=== PATIENT | male | born 1940 | race Asian ===

== ENCOUNTER 2022-05-07 09:00 | Inpatient (IN) | payer OTHER, MEDICAID ==
[~2022-05-07] VITALS: Ht 167.6 cm; Wt 101.2 kg
[2022-05-07 09:39] LABS: Urine Bacteria NONE SEEN /hpf (None Seen); Urine Blood Negative /uL (Negative); Urine Hyaline Cast FEW /lpf (0 - 2); Urine Specific Gravity 1.014 (1.001-1.035); Urine WBC <1 /hpf (0 - 3)
[2022-05-07 09:42] LABS: Basophils # (auto) 0 10 ^3/uL (0-0.2); Eosinophils # (auto) 0.1 10 ^3/uL (0-0.8); Eosinophils % (auto) 2.3 % (0.0-7.0); Lymphocytes # (auto) 1.5 10 ^3/uL (0.4-5.4); Monocytes # (auto) 0.7 10 ^3/uL (0-1.3); Neutrophils # (auto) 3.2 10 ^3/uL (1.6-8.6); Nucleated Red Blood Cells % 0.2 %; Red Cell Distribution Width 15.7 % (11.8-14.3)
[2022-05-07 09:44] LABS: Basophils % (auto) 0.3 % (0.0-2.0); Hematocrit 33.8 % (41.0-53.0); Hemoglobin 11.3 g/dL (13.5-17.5); Lymphocytes % (auto) 26.3 % (10.0-50.0); Mean Corpuscular Hemoglobin 35.2 pg (28.0-32.0); Mean Corpuscular Hgb Conc. 33.3 g/dL (32.0-36.0); Mean Corpuscular Volume 105.8 fL (80.0-100.0); Monocytes % (auto) 12.9 % (0.0-12.0); Neutrophils % (auto) 58.2 % (37.0-80.0); White Blood Cell 5.6 10^3/uL (4.4-10.8)
[2022-05-07 10:05] LABS: Albumin 3.2 g/dL (3.4-5.0); BUN/Creatinine Ratio 25.3; Calcium 8.9 mg/dL (8.5-10.1); Potassium 3.9 mmol/L (3.5-5.1)
[2022-05-07 10:08] LABS: Bilirubin, Total 0.4 mg/dL (0.2-1.0); Total Protein 8.4 g/dL (6.4-8.2)
[2022-05-07] MEDS ORDERED: LACTATED RINGER'S 1,000 ML IV ONE (10:30)
[2022-05-07 10:59] LABS: Magnesium 2.5 mg/dL (1.6-2.6); Phosphorus 2.3 mg/dL (2.5-4.90)
[2022-05-07] MEDS ORDERED: NITROGLYCERIN 0.4 MG SL TAB SL PRN (11:15)
[2022-05-07] MEDS ORDERED: MORPHINE SULFATE INJ 2 MG/ml SYRG IV PRN (11:15)
[2022-05-07] MEDS ORDERED: DEXTROSE (50%) 50ML SYRG IV PRN (11:30)
[2022-05-07] MEDS ORDERED: hydrALAZINE HCL 20 MG/ML VL IV PRN (11:45)
[2022-05-07] MEDS: SODIUM CHLORIDE 0.9% 1,000 ML IV SCH ×2 (12:21→22:29)
[2022-05-07] MEDS: ACCU-CHEK COMFORT CURVE STRIP VI SCH ×4 (12:24→22:10)
[2022-05-07] MEDS: InsuLIN REG 1unit/0.01ml Soln (100units/ml) SC SCH ×3 (12:24→22:25)
[2022-05-07 12:37] LABS: Alcohol, Urine < 3.0 mg/dL (0-10); Amphetamine Screen, Urine NEGATIVE (NEGATIVE); Barbiturate Scree,Urine NEGATIVE (NEGATIVE); Benzodiazephine Screen, Urine NEGATIVE (NEGATIVE); Cannabinoid Screen, Urine NEGATIVE (NEGATIVE); Cocaine Screen, Urine NEGATIVE (NEGATIVE); Opiate Scree,Urine NEGATIVE (NEGATIVE); Phencyclidine Screen, Urine NEGATIVE (NEGATIVE)
[2022-05-07 12:43] LABS: Cholesterol 117 mg/dL (< 200); Triglycerides 102 mg/dL (< 150)
[2022-05-07 12:46] LABS: HDL Cholesterol 52 mg/dL (40-59); LDL Cholesterol 53 mg/dL (< 100)
[2022-05-08 06:19] LABS: Basophils # (auto) 0 10 ^3/uL (0-0.2); Eosinophils # (auto) 0.2 10 ^3/uL (0-0.8); Lymphocytes # (auto) 1.2 10 ^3/uL (0.4-5.4); Monocytes # (auto) 0.7 10 ^3/uL (0-1.3)
[2022-05-08 06:22] LABS: Basophils % (auto) 0.3 % (0.0-2.0); Eosinophils % (auto) 3.2 % (0.0-7.0); Hemoglobin 10.1 g/dL (13.5-17.5); Lymphocytes % (auto) 23.5 % (10.0-50.0); Mean Corpuscular Hemoglobin 36.7 pg (28.0-32.0); Mean Corpuscular Hgb Conc. 34.6 g/dL (32.0-36.0); Mean Corpuscular Volume 106.1 fL (80.0-100.0); Monocytes % (auto) 12.9 % (0.0-12.0); Neutrophils # (auto) 3.1 10 ^3/uL (1.6-8.6); Neutrophils % (auto) 60.1 % (37.0-80.0); Nucleated Red Blood Cells % 0.1 %; Red Blood Cells 2.74 10^6/uL (4.5-5.90); Red Cell Distribution Width 15.8 % (11.8-14.3); White Blood Cell 5.2 10^3/uL (4.4-10.8)
[2022-05-08 06:35] LABS: Albumin 2.8 g/dL (3.4-5.0); BUN/Creatinine Ratio 23.2; Calcium 8.8 mg/dL (8.5-10.1); Potassium 4.1 mmol/L (3.5-5.1)
[2022-05-08] MEDS: InsuLIN REG 1unit/0.01ml Soln (100units/ml) SC SCH ×4 (06:36→21:40)
[2022-05-08 06:38] LABS: Bilirubin, Total 0.4 mg/dL (0.2-1.0); Total Protein 7.1 g/dL (6.4-8.2)
[2022-05-08] MEDS: SODIUM CHLORIDE 0.9% 1,000 ML IV SCH ×2 (07:30→17:02)
[2022-05-08 08:30] LABS: Folate (Folic Acid) 14.85 ng/mL (5.38-24)
[2022-05-08] MEDS ORDERED: GABA-339 PO (09:21)
[2022-05-08] MEDS ORDERED: CYA100I IM (09:49)
[2022-05-08] MEDS ORDERED: FURO40TA4 PO (09:49)
[2022-05-08] MEDS ORDERED: PIO30T PO (09:49)
[2022-05-08] MEDS ORDERED: PANT1INJ3 IV (09:49)
[2022-05-08] MEDS ORDERED: FERR-20 PO (09:49)
[2022-05-08] MEDS ORDERED: ALLO100T PO (09:49)
[2022-05-08] MEDS ORDERED: ASPI-543 PO (09:49)
[2022-05-08] MEDS ORDERED: TAMS0.4C36 PO (09:49)
[2022-05-08] MEDS ORDERED: CHOL20007 OR (09:49)
[2022-05-08] MEDS: PANTOPRAZOLE 40 MG/10 ML VIAL INJ IV SCH (10:33)
[2022-05-08] MEDS: ENOXAPARIN SOD 30 MG/0.3 ML SYRINGE SC SCH (10:33)
[2022-05-08 10:40] LABS: % Iron Saturation 19.5 % (20-55)
[2022-05-08 12:41] VITALS: BP 135/59
[2022-05-08] MEDS: ACCU-CHEK COMFORT CURVE STRIP VI SCH ×3 (13:02→21:39)
[2022-05-08 13:49] VITALS: BP 135/59
[2022-05-08 17:07] VITALS: BP 122/54
[2022-05-08 20:00] VITALS: BP 132/57
[2022-05-08 22:00] VITALS: BP 132/57
[2022-05-08] MEDS ORDERED: PRAMIPEXOLE DIHYDROCHLORIDE MO 0.25 MG TAB PO SCH (22:00)
[2022-05-09 05:00] VITALS: BP 135/48
[2022-05-09] MEDS: ACCU-CHEK COMFORT CURVE STRIP VI SCH ×2 (06:09→11:26)
[2022-05-09] MEDS: InsuLIN REG 1unit/0.01ml Soln (100units/ml) SC SCH ×2 (06:11→11:41)
[2022-05-09 06:30] LABS: Magnesium 2.2 mg/dL (1.6-2.6); Phosphorus 2.3 mg/dL (2.5-4.90)
[2022-05-09 07:47] LABS: INR 1.05 (0.9-1.15); Partial Thromboplastin Time 29.2 sec (24.6-33.4)
[2022-05-09 08:00] VITALS: BP_SYST 104; BP_SYST 150; BP_DIAS 75; BP_DIAS 78
[2022-05-09] MEDS: ENOXAPARIN SOD 30 MG/0.3 ML SYRINGE SC SCH (08:11)
[2022-05-09] MEDS ORDERED: ENOXAPARIN SOD 40 MG/0.4 ML SYRINGE SC SCH (10:00)
[2022-05-09] MEDS ORDERED: ERGOCALCIFEROL 50,000 UNIT(1.25MG) CAP PO SCH (10:00)
[2022-05-09] MEDS ORDERED: POTASSIUM PHOSPHATE 22 MEQ in SODIUM CHL 0.9% 100 ML IV ONE (10:00)
[2022-05-09] MEDS ORDERED: CYANOCOBALAMIN 500 MCG TAB PO SCH (10:00)
[2022-05-09 10:36] LABS: BUN/Creatinine Ratio 17.4; Calcium 8.7 mg/dL (8.5-10.1)
[2022-05-09] MEDS: PANTOPRAZOLE 40 MG/10 ML VIAL INJ IV SCH (11:25)
[2022-05-09 12:00] VITALS: BP 153/66
[2022-05-09 15:02] VITALS: BP 153/66
== END 2022-05-09 16:15 | disposition home or self-care (01) | DRG 73 ==
LOC: ER 09:00 → TELE 11:19 → TELE-CENTR 05-08 11:22
PROVIDERS: ADMIT Registered Nurse; ATTEND Internal Medicine
DX: G90.8 Other disorders of autonomic nervous system (principal); E43 Unspecified severe protein-calorie malnutrition; N17.0 Acute kidney failure with tubular necrosis; C34.90 Malignant neoplasm of unspecified part of unspecified bronchus or lung; D50.9 Iron deficiency anemia, unspecified; D63.8 Anemia in other chronic diseases classified elsewhere; E53.8 Deficiency of other specified B group vitamins; E66.01 Morbid (severe) obesity due to excess calories; G25.81 Restless legs syndrome; G47.00 Insomnia, unspecified; E11.22 Type 2 diabetes mellitus with diabetic chronic kidney disease; I12.9 Hypertensive chronic kidney disease with stage 1 through stage 4 chronic kidney disease, or unspecified chronic kidney disease; N18.31 Chronic kidney disease, stage 3a; R29.6 Repeated falls; R55 Syncope and collapse; Z68.36 Body mass index [BMI] 36.0-36.9, adult; Z71.3 Dietary counseling and surveillance
CPT/HCPCS: 36415; 70450; 70551; 71045; 71250; 74176; 80048; 80053; 80061; 80307; 81001; 82105; 82306; 82378; 82570; 82607; 82728; 82746; 82962; 83036; 83540; 83550; 83735; 83880; 83935; 84100; 84154; 84156; 84300; 84443; 84484; 85025; 85379; 85610; 85730; 86301; 87081; 87426; 93005; 93306; 93886; 93970; 95819; 96360; 96372; 97163; C9113; G0378; J1815

== ENCOUNTER → 2022-08-25 | Outpatient (CLI) | payer OTHER, MEDICAID ==
[~2022-08-25] MED LIST: ALLO100T PO; ASPI-543 PO; CHOL20007 OR; CYA100I IM; FERR325T24 PO; FURO40TA4 PO; GABA-339 PO; PANT1INJ3 IV; PIO30T PO; TAMS0.4C36 PO
[2022-08-25 06:54] LABS: Basophils # (auto) 0 10 ^3/uL (0-0.2); Basophils % (auto) 0.4 % (0.0-2.0); Eosinophils # (auto) 0.4 10 ^3/uL (0-0.8); Hematocrit 34.7 % (41.0-53.0); Hemoglobin 11.5 g/dL (13.5-17.5); Lymphocytes # (auto) 1.8 10 ^3/uL (0.4-5.4); Lymphocytes % (auto) 27.7 % (10.0-50.0); Mean Corpuscular Hemoglobin 33.5 pg (28.0-32.0); Mean Corpuscular Hgb Conc. 33.2 g/dL (32.0-36.0); Mean Corpuscular Volume 100.9 fL (80.0-100.0); Monocytes # (auto) 0.7 10 ^3/uL (0-1.3); Monocytes % (auto) 10.2 % (0.0-12.0); Neutrophils # (auto) 3.5 10 ^3/uL (1.6-8.6); Neutrophils % (auto) 54.7 % (37.0-80.0); Nucleated Red Blood Cells % 0.1 %; Red Blood Cells 3.44 10^6/uL (4.5-5.90); Red Cell Distribution Width 15.7 % (11.8-14.3); White Blood Cell 6.4 10^3/uL (4.4-10.8)
[2022-08-25 07:17] LABS: INR 1.08 (0.9-1.15); Partial Thromboplastin Time 29.6 SEC (24.5-34.5)
== END | disposition home or self-care (01) ==
LOC: LAB 06:42
PROVIDERS: ATTEND Internal Medicine
DX: Z01.810 Encounter for preprocedural cardiovascular examination (principal); R91.8 Other nonspecific abnormal finding of lung field; R06.02 Shortness of breath
CPT/HCPCS: 36415; 85025; 85610; 85730

== ENCOUNTER → 2022-11-09 | Outpatient (CLI) | payer OTHER, MEDICAID ==
[2022-11-09 07:12] LABS: Urine Bacteria NONE SEEN /hpf (None Seen); Urine Blood Negative /uL (Negative); Urine Clarity Clear (Clear); Urine Color Yellow (Yellow); Urine Protein, UAD TRACE (Negative); Urine Specific Gravity 1.014 (1.001-1.035); Urine Urobilinogen Normal (Negative); Urine WBC <1 /hpf (0 - 3); Urine pH 5.5 (5.0-8.0)
[2022-11-09 07:53] LABS: Anion Gap 4 (5-15); Carbon Dioxide 31 mmol/L (20-30); Chloride 104 mmol/L (98-107); Potassium 4.4 mmol/L (3.5-5.1); Sodium 139 mmol/L (136-145)
[2022-11-09 07:54] LABS: Calcium 9.3 mg/dL (8.5-10.1)
[2022-11-09 07:59] LABS: BUN/Creatinine Ratio 15.1 (10.0-20.0); Blood Urea Nitrogen 25 mg/dL (9-23); Glucose 170 mg/dL (74-106)
== END | disposition home or self-care (01) ==
LOC: LAB 06:38
PROVIDERS: ATTEND Internal Medicine
DX: E11.22 Type 2 diabetes mellitus with diabetic chronic kidney disease (principal); N18.9 Chronic kidney disease, unspecified
CPT/HCPCS: 36415; 80048; 81001; 82043; 83036

== ENCOUNTER → 2023-06-19 | Outpatient (CLI) | payer OTHER, MEDICAID ==
[2023-06-19 06:42] LABS: Urine Bacteria None Seen /hpf (None Seen)
[2023-06-19 07:35] LABS: Urine Blood Negative /uL (Negative); Urine Clarity Clear (Clear); Urine Color Colorless (Yellow); Urine Protein, UAD TRACE (Negative); Urine Specific Gravity 1.009 (1.001-1.035); Urine Urobilinogen Normal (Negative); Urine WBC <1 /hpf (0 - 3); Urine pH 6.5 (5.0-9.0)
[2023-06-19 07:43] LABS: Alanine Aminotransferase 15 U/L (7-40); Alkaline Phosphatase 111 U/L (46-116); Anion Gap 7 (5-15); Calcium 9.7 mg/dL (8.5-10.1); Carbon Dioxide 30 mmol/L (20-30); Chloride 101 mmol/L (98-107); Potassium 3.9 mmol/L (3.5-5.1); Sodium 138 mmol/L (136-145)
[2023-06-19 07:44] LABS: BUN/Creatinine Ratio 17.5 (10.0-20.0); Blood Urea Nitrogen 32 mg/dL (9-23); Glucose 104 mg/dL (74-106); Triglycerides 81 mg/dL (< 150)
[2023-06-19 07:45] LABS: Albumin 4.1 g/dL (3.2-4.8); LDL Cholesterol 58 mg/dL (< 100)
[2023-06-19 07:46] LABS: Aspartate Aminotransferase 33 U/L (13-40); Bilirubin, Total 0.5 mg/dL (0.2-1.0); Cholesterol 140 mg/dL (< 200); HDL Cholesterol 61 mg/dL (40-59); Total Protein 8.1 g/dL (5.7-8.2)
[2023-06-19 08:11] LABS: Basophils # (auto) 0 10 ^3/uL (0-0.2); Basophils % (auto) 0.3 % (0.0-2.0); Eosinophils # (auto) 0.2 10 ^3/uL (0-0.8); Hematocrit 32.7 % (41.0-53.0); Hemoglobin 10.9 g/dL (13.5-17.5); Neutrophils # (auto) 2.1 10 ^3/uL (1.6-8.6); Nucleated Red Blood Cells % 0.3 %; Red Blood Cells 3.06 10^6/uL (4.5-5.90); White Blood Cell 5.1 10^3/uL (4.4-10.8)
[2023-06-19 08:13] LABS: Eosinophils % (auto) 3.7 % (0.0-7.0); Lymphocytes % (auto) 39.8 % (10.0-50.0); Mean Corpuscular Hemoglobin 35.7 pg (28.0-32.0); Mean Corpuscular Hgb Conc. 33.5 g/dL (32.0-36.0); Mean Corpuscular Volume 106.6 fL (80.0-100.0); Monocytes # (auto) 0.7 10 ^3/uL (0-1.3); Monocytes % (auto) 14.2 % (0.0-12.0); Red Cell Distribution Width 16.6 % (11.8-14.3)
== END | disposition home or self-care (01) ==
LOC: LAB 06:24
PROVIDERS: ATTEND Internal Medicine
DX: I12.9 Hypertensive chronic kidney disease with stage 1 through stage 4 chronic kidney disease, or unspecified chronic kidney disease (principal); N18.32 Chronic kidney disease, stage 3b; E11.65 Type 2 diabetes mellitus with hyperglycemia; E11.22 Type 2 diabetes mellitus with diabetic chronic kidney disease
CPT/HCPCS: 36415; 80053; 80061; 81001; 82043; 83036; 85025

== ENCOUNTER → 2023-08-21 | Outpatient (CLI) | payer OTHER, MEDICAID | END | disposition home or self-care (01) | LOC: XYW 09:17 | PROVIDERS: ATTEND Internal Medicine | DX: I08.3 Combined rheumatic disorders of mitral, aortic and tricuspid valves (principal); R94.31 Abnormal electrocardiogram [ECG] [EKG] | CPT/HCPCS: 93306 ==

== ENCOUNTER → 2023-11-15 | Outpatient (CLI) | payer OTHER, MEDICAID ==
[~2023-11-15] MED LIST changes: +ASCO500T11 PO; +ATOR10TA PO; +GLIM4TAB42 PO; +LOSA-534 PO; +METO25TA93 PO; +MIDO5TAB22 PO; +PIOG45TA11 PO; +SITA50TA PO; -TAMS0.4C36 PO; +TAMS0.4C39 PO
[2023-11-15 09:53] LABS: Urine WBC None Seen /hpf (0 - 3)
[2023-11-15 10:24] LABS: Urine Bacteria FEW /hpf (None Seen); Urine Blood Negative /uL (Negative); Urine Clarity Clear (Clear); Urine Color Light-Yellow (Yellow); Urine Hyaline Cast FEW /lpf (0 - 2); Urine Protein, UAD Negative (Negative); Urine Specific Gravity 1.009 (1.001-1.035); Urine Urobilinogen Normal (Negative)
[2023-11-15 10:43] LABS: Basophils # (auto) 0 10 ^3/uL (0-0.2); Eosinophils # (auto) 0 10 ^3/uL (0-0.8); Lymphocytes # (auto) 1.2 10 ^3/uL (0.4-5.4); Monocytes # (auto) 0.4 10 ^3/uL (0-1.3)
[2023-11-15 10:46] LABS: Basophils % (auto) 0.4 % (0.0-2.0); Hematocrit 31.6 % (41.0-53.0); Lymphocytes % (auto) 29.7 % (10.0-50.0); Mean Corpuscular Hemoglobin 38.2 pg (28.0-32.0); Mean Corpuscular Hgb Conc. 34.9 g/dL (32.0-36.0); Mean Corpuscular Volume 109.6 fL (80.0-100.0); Monocytes % (auto) 9.6 % (0.0-12.0); Neutrophils # (auto) 2.5 10 ^3/uL (1.6-8.6); Neutrophils % (auto) 59.3 % (37.0-80.0); Nucleated Red Blood Cells % 0.2 %; Platelet Count (auto) 109 10^3/uL (140-450); Red Blood Cells 2.88 10^6/uL (4.5-5.90); Red Cell Distribution Width 16.9 % (11.8-14.3); White Blood Cell 4.1 10^3/uL (4.4-10.8)
[2023-11-15 10:56] LABS: INR 1.13 (0.9-1.15); Partial Thromboplastin Time 32.2 SEC (24.5-34.5); Prothrombin Time 11.9 sec (9.3-11.8)
[2023-11-15 11:28] LABS: Alanine Aminotransferase 13 U/L (7-40); Alkaline Phosphatase 125 U/L (46-116); Aspartate Aminotransferase 26 U/L (13-40); Calcium 9.5 mg/dL (8.7-10.4); Chloride 102 mmol/L (98-107)
[2023-11-15 11:29] LABS: Anion Gap 4 (5-15); BUN/Creatinine Ratio 19.2 (10.0-20.0); Bilirubin, Total 0.6 mg/dL (0.2-1.0); Blood Urea Nitrogen 32 mg/dL (9-23); Carbon Dioxide 30 mmol/L (20-30); Glucose 259 mg/dL (74-106); Potassium 4.1 mmol/L (3.5-5.1); Sodium 136 mmol/L (136-145); Total Protein 7.8 g/dL (5.7-8.2)
== END | disposition home or self-care (01) ==
LOC: LAB 09:42
PROVIDERS: ATTEND Urology
DX: Z01.812 Encounter for preprocedural laboratory examination (principal); E11.22 Type 2 diabetes mellitus with diabetic chronic kidney disease; Z79.899 Other long term (current) drug therapy
CPT/HCPCS: 36415; 80053; 81001; 85025; 85610; 85730; 87086

== ENCOUNTER → 2023-11-26 | Day surgery (SDC) | payer OTHER, MEDICAID ==
[2023-11-22 11:12] LABS: Urine Bacteria None Seen /hpf (None Seen); Urine WBC None Seen /hpf (0 - 3)
[2023-11-22 11:52] LABS: INR 1.07 (0.9-1.15); Partial Thromboplastin Time 30.2 SEC (24.5-34.5); Prothrombin Time 11.3 sec (9.3-11.8)
[2023-11-22 11:59] LABS: Hematocrit 35.7 % (41.0-53.0); Mean Corpuscular Hemoglobin 35.5 pg (28.0-32.0); Mean Corpuscular Hgb Conc. 33.8 g/dL (32.0-36.0); Mean Corpuscular Volume 105.1 fL (80.0-100.0); Platelet Count (auto) 120 10^3/uL (140-450); Red Blood Cells 3.39 10^6/uL (4.5-5.90); Red Cell Distribution Width 17.1 % (11.8-14.3); White Blood Cell 4.7 10^3/uL (4.4-10.8)
[2023-11-22 12:00] LABS: Basophils % (manual) 0 (0.0-2.0); Blast Cells 0; Eosinophils % (manual) 0 (0-7); Metamyelocytes % 0; Myelocytes % 0; Promyelocytes % 0; Reactive Lymphocytes 0
[2023-11-22 12:06] LABS: Urine Blood Negative /uL (Negative); Urine Clarity Clear (Clear); Urine Color Colorless (Yellow); Urine Protein, UAD Negative (Negative); Urine Specific Gravity 1.005 (1.001-1.035); Urine Urobilinogen Normal (Negative); Urine pH 6.5 (5.0-9.0)
[2023-11-22 12:55] LABS: Alanine Aminotransferase 15 U/L (7-40); Albumin 4.2 g/dL (3.2-4.8); Alkaline Phosphatase 127 U/L (46-116); Anion Gap 4 (5-15); Aspartate Aminotransferase 27 U/L (13-40); BUN/Creatinine Ratio 16.4 (10.0-20.0); Bilirubin, Total 0.8 mg/dL (0.2-1.0); Blood Urea Nitrogen 27 mg/dL (9-23); Calcium 9.9 mg/dL (8.7-10.4); Carbon Dioxide 34 mmol/L (20-31); Chloride 102 mmol/L (98-107); Glucose 148 mg/dL (74-106); Potassium 4.4 mmol/L (3.5-5.1); Sodium 140 mmol/L (136-145); Total Protein 7.9 g/dL (5.7-8.2)
[2023-11-22 13:57] LABS: Band Neutrophils % (manual) 12; Lymphocytes % (manual) 27 (10.0-50.0); Monocytes % (manual) 11 (0-12)
[2023-11-22 13:58] LABS: Platelet Estimate Decreased; Stomatocytes Few
[~2023-11-26] VITALS: Ht 167.6 cm; Wt 90.7 kg
[~2023-11-26] MED LIST changes: +DexAMETHasone SOD PHOS 10MG/1ML VIAL INJ ONE; +MIDAZOLAM HCL 2MG/2ML 2ml VIAL (1mg/ml) ONE; +MORPHINE SULFATE 4 MG/ML SYR/VIAL IV PRN; +ONDANSETRON HCL 4 MG/2 ML VIAL ONE; -PIO30T PO; +fentaNYL CITRATE 100 MCG/2 ML VL ONE; +levoFLOXacin 500MG 100 ML IV ONE
[2023-11-26 10:42] VITALS: RESP 12; TEMP 97.8; O2SAT 100
[2023-11-26 11:40] VITALS: BP 142/67; PULSE 54; RESP 11; O2SAT 96
== END | disposition home or self-care (01) ==
LOC: SUR 08:15
PROVIDERS: ATTEND Urology
DX: N40.1 Benign prostatic hyperplasia with lower urinary tract symptoms (principal); E11.9 Type 2 diabetes mellitus without complications; I48.91 Unspecified atrial fibrillation; I10 Essential (primary) hypertension; E78.5 Hyperlipidemia, unspecified; Z79.82 Long term (current) use of aspirin; Z79.899 Other long term (current) drug therapy; Z98.890 Other specified postprocedural states
CPT/HCPCS: 36415; 80053; 81001; 82962; 85007; 85027; 85610; 85730; 87086; C1769; C9740; J1100; J1956; J2250; J2405; J3010; J7030; L8699

== ENCOUNTER → 2023-12-13 | Outpatient (CLI) | payer OTHER, MEDICAID ==
[~2023-12-13] MED LIST changes: -DexAMETHasone SOD PHOS 10MG/1ML VIAL INJ ONE; -MIDAZOLAM HCL 2MG/2ML 2ml VIAL (1mg/ml) ONE; -MORPHINE SULFATE 4 MG/ML SYR/VIAL IV PRN; -ONDANSETRON HCL 4 MG/2 ML VIAL ONE; -fentaNYL CITRATE 100 MCG/2 ML VL ONE; -levoFLOXacin 500MG 100 ML IV ONE
[2023-12-13 10:44] LABS: Basophils # (auto) 0 10 ^3/uL (0-0.2); Eosinophils # (auto) 0.2 10 ^3/uL (0-0.8); Hemoglobin 10.6 g/dL (13.5-17.5); Lymphocytes # (auto) 1.6 10 ^3/uL (0.4-5.4); Monocytes # (auto) 0.4 10 ^3/uL (0-1.3); Neutrophils # (auto) 2.8 10 ^3/uL (1.6-8.6)
[2023-12-13 10:46] LABS: Basophils % (auto) 0.2 % (0.0-2.0); Eosinophils % (auto) 3.1 % (0.0-7.0); Hematocrit 31.6 % (41.0-53.0); Lymphocytes % (auto) 32.6 % (10.0-50.0); Mean Corpuscular Hemoglobin 35.2 pg (28.0-32.0); Mean Corpuscular Hgb Conc. 33.6 g/dL (32.0-36.0); Mean Corpuscular Volume 104.9 fL (80.0-100.0); Monocytes % (auto) 8.1 % (0.0-12.0); Platelet Count (auto) 130 10^3/uL (140-450); Red Blood Cells 3.01 10^6/uL (4.5-5.90); Red Cell Distribution Width 16.7 % (11.8-14.3); White Blood Cell 4.9 10^3/uL (4.4-10.8)
[2023-12-13 11:45] LABS: Alanine Aminotransferase 17 U/L (7-40); Alkaline Phosphatase 109 U/L (46-116); Anion Gap 5 (5-15); Aspartate Aminotransferase 29 U/L (13-40); BUN/Creatinine Ratio 19.4 (10.0-20.0); Blood Urea Nitrogen 30 mg/dL (9-23); Calcium 9.5 mg/dL (8.7-10.4); Carbon Dioxide 28 mmol/L (20-31); Chloride 106 mmol/L (98-107); Glucose 181 mg/dL (74-106); LDL Cholesterol 58 mg/dL (< 100); Potassium 4.3 mmol/L (3.5-5.1); Sodium 139 mmol/L (136-145); Triglycerides 161 mg/dL (< 150)
[2023-12-13 11:46] LABS: Bilirubin, Total 0.7 mg/dL (0.2-1.0); Cholesterol 142 mg/dL (< 200); HDL Cholesterol 56 mg/dL (40-59); Total Protein 7.7 g/dL (5.7-8.2)
== END | disposition home or self-care (01) ==
LOC: LAB 10:24
PROVIDERS: ATTEND Internal Medicine
DX: E11.65 Type 2 diabetes mellitus with hyperglycemia (principal); E78.5 Hyperlipidemia, unspecified; I10 Essential (primary) hypertension
CPT/HCPCS: 36415; 80053; 80061; 83036; 85025

== ENCOUNTER → 2024-04-16 | Outpatient (CLI) | payer OTHER, MEDICAID ==
[2024-04-16 06:54] LABS: Urine Bacteria None Seen /hpf (None Seen)
[2024-04-16 07:03] LABS: Urine Blood Negative /uL (Negative); Urine Clarity Clear (Clear); Urine Color Colorless (Yellow); Urine Protein, UAD Negative (Negative); Urine Specific Gravity 1.006 (1.001-1.035); Urine Squamous Epithelial Cell None Seen /hpf (<5); Urine Urobilinogen Normal (Negative); Urine WBC < 1 /HPF (0-3); Urine pH 5.5 (5.0-9.0)
[2024-04-16 07:09] LABS: Basophils # (auto) 0 10 ^3/uL (0-0.2); Eosinophils # (auto) 0.4 10 ^3/uL (0-0.8); Hemoglobin 9.9 g/dL (13.5-17.5); Lymphocytes # (auto) 1.4 10 ^3/uL (0.4-5.4); Mean Corpuscular Hemoglobin 34.9 pg (28.0-32.0); Neutrophils # (auto) 3.5 10 ^3/uL (1.6-8.6); Nucleated Red Blood Cells % 0.1 %; Red Blood Cells 2.83 10^6/uL (4.5-5.90); White Blood Cell 6.1 10^3/uL (4.4-10.8)
[2024-04-16 07:11] LABS: Basophils % (auto) 0.3 % (0.0-2.0); Eosinophils % (auto) 6.8 % (0.0-7.0); Hematocrit 29.6 % (41.0-53.0); Lymphocytes % (auto) 23.7 % (10.0-50.0); Mean Corpuscular Hgb Conc. 33.3 g/dL (32.0-36.0); Mean Corpuscular Volume 104.8 fL (80.0-100.0); Monocytes # (auto) 0.7 10 ^3/uL (0-1.3); Monocytes % (auto) 11.5 % (0.0-12.0); Neutrophils % (auto) 57.7 % (37.0-80.0); Platelet Count (auto) 170 10^3/uL (140-450); Red Cell Distribution Width 15.9 % (11.8-14.3)
[2024-04-16 07:39] LABS: Albumin 4.2 g/dL (3.2-4.8); Anion Gap 7 (5-15); Aspartate Aminotransferase 15 U/L (13-40); BUN/Creatinine Ratio 21.6 (10.0-20.0); Bilirubin, Total 0.4 mg/dL (0.2-1.0); Calcium 9.8 mg/dL (8.7-10.4); Carbon Dioxide 30 mmol/L (20-31); Cholesterol 123 mg/dL (< 200); HDL Cholesterol 58 mg/dL (40-59); LDL Cholesterol 50 mg/dL (< 100); Potassium 4.3 mmol/L (3.5-5.1); Total Protein 7.3 g/dL (5.7-8.2); Triglycerides 76 mg/dL (< 150)
[2024-04-16 07:40] LABS: Free T4 (Free Thyroxine) 1.17 ng/dL (0.89-1.76)
[2024-04-16 07:41] LABS: Alanine Aminotransferase < 9 U/L (7-40); Alkaline Phosphatase 117 U/L (46-116); Blood Urea Nitrogen 45 mg/dL (9-23); Chloride 95 mmol/L (98-107); Glucose 117 mg/dL (74-106); Sodium 132 mmol/L (136-145)
== END | disposition home or self-care (01) ==
LOC: LAB 06:39
PROVIDERS: ATTEND Internal Medicine
DX: I12.9 Hypertensive chronic kidney disease with stage 1 through stage 4 chronic kidney disease, or unspecified chronic kidney disease (principal); E11.22 Type 2 diabetes mellitus with diabetic chronic kidney disease; N18.9 Chronic kidney disease, unspecified; E78.5 Hyperlipidemia, unspecified; Z79.899 Other long term (current) drug therapy
CPT/HCPCS: 36415; 80053; 80061; 81001; 82043; 82306; 82607; 83036; 84439; 84443; 84480; 85025

== ENCOUNTER 2024-10-01 07:53 | Outpatient (CLI) | payer OTHER, MEDICAID ==
[2024-10-01 08:22] LABS: Urine Protein, UAD Negative (Negative)
[2024-10-01 08:37] LABS: Albumin 3.9 g/dL (3.2-4.8); Alkaline Phosphatase 85 U/L (46-116); Anion Gap 6 (5-15); BUN/Creatinine Ratio 22.1 (10.0-20.0); Bilirubin, Total 0.7 mg/dL (0.2-1.0); Calcium 9.1 mg/dL (8.7-10.4); Carbon Dioxide 29 mmol/L (20-31); Cholesterol 153 mg/dL (< 200); Potassium 4.7 mmol/L (3.5-5.1); Total Protein 6.6 g/dL (5.7-8.2); Triglycerides 82 mg/dL (< 150)
[2024-10-01 08:39] LABS: Alanine Aminotransferase < 9 U/L (7-40); Blood Urea Nitrogen 40 mg/dL (9-23); Chloride 96 mmol/L (98-107); Glucose 252 mg/dL (74-106); HDL Cholesterol 69 mg/dL (40-59); Sodium 131 mmol/L (136-145)
== END 2024-10-01 17:00 | disposition home or self-care (01) ==
LOC: LAB 07:53
PROVIDERS: ATTEND Internal Medicine
DX: I12.9 Hypertensive chronic kidney disease with stage 1 through stage 4 chronic kidney disease, or unspecified chronic kidney disease (principal); N18.9 Chronic kidney disease, unspecified; E11.22 Type 2 diabetes mellitus with diabetic chronic kidney disease; E78.5 Hyperlipidemia, unspecified
CPT/HCPCS: 36415; 80053; 80061; 81001; 82043; 82607; 83036

== ENCOUNTER 2024-10-15 13:42 | Outpatient (CLI) | payer OTHER, MEDICAID | END 2024-10-15 17:00 | disposition home or self-care (01) | LOC: LAB 13:42 | PROVIDERS: ATTEND Internal Medicine | DX: M25.462 Effusion, left knee (principal) | CPT/HCPCS: 36415; 87075; 87076; 87205; 89051 ==

== ENCOUNTER 2024-11-27 06:38 | Outpatient (CLI) | payer OTHER, MEDICAID ==
[2024-11-27 07:58] LABS: Urine Protein, UAD Negative (Negative)
[2024-11-27 08:10] LABS: Hematocrit 28.7 % (41.0-53.0); Hemoglobin 10.0 g/dL (13.5-17.5)
[2024-11-27 08:12] LABS: Mean Corpuscular Hemoglobin 36.3 pg (28.0-32.0); Mean Corpuscular Volume 103.4 fL (80.0-100.0); Nucleated Red Blood Cells % 0.1 %
[2024-11-27 08:14] LABS: Anion Gap 8 (5-15); Carbon Dioxide 28 mmol/L (20-31); Potassium 4.8 mmol/L (3.5-5.1)
[2024-11-27 08:15] LABS: Calcium 9.0 mg/dL (8.7-10.4)
[2024-11-27 08:17] LABS: Chloride 98 mmol/L (98-107); Sodium 134 mmol/L (136-145)
[2024-11-27 08:20] LABS: BUN/Creatinine Ratio 17.5 (10.0-20.0)
[2024-11-27 08:25] LABS: Blood Urea Nitrogen 29 mg/dL (9-23); Glucose 137 mg/dL (74-106)
== END 2024-11-27 17:00 | disposition home or self-care (01) ==
LOC: LAB 06:38
PROVIDERS: ATTEND Internal Medicine
DX: I12.9 Hypertensive chronic kidney disease with stage 1 through stage 4 chronic kidney disease, or unspecified chronic kidney disease (principal); E11.22 Type 2 diabetes mellitus with diabetic chronic kidney disease; N18.32 Chronic kidney disease, stage 3b; R79.89 Other specified abnormal findings of blood chemistry
CPT/HCPCS: 36415; 80048; 81001; 82043; 82607; 85025

== ENCOUNTER 2025-01-20 07:57 | Day surgery (SDC) | payer OTHER, MEDICAID ==
[2025-01-16 11:50] LABS: Hemoglobin 11.8 g/dL (13.5-17.5)
[2025-01-16 11:52] LABS: Hematocrit 35.1 % (41.0-53.0); Mean Corpuscular Hemoglobin 34.1 pg (28.0-32.0); Mean Corpuscular Volume 101.1 fL (80.0-100.0); Nucleated Red Blood Cells % 0.3 %
[2025-01-16 11:57] LABS: Urine Protein, UAD Negative (Negative)
[2025-01-16 12:01] LABS: INR 0.96 (0.9-1.15); Partial Thromboplastin Time 27.3 SEC (24.5-34.5); Prothrombin Time 10.2 sec (9.3-11.8)
[2025-01-16 12:11] LABS: Alanine Aminotransferase 10 U/L (7-40); Anion Gap 8 (5-15); BUN/Creatinine Ratio 21.5 (10.0-20.0); Calcium 9.1 mg/dL (8.7-10.4); Carbon Dioxide 29 mmol/L (20-31); Chloride 99 mmol/L (98-107); Potassium 4.9 mmol/L (3.5-5.1); Sodium 136 mmol/L (136-145); Total Protein 6.8 g/dL (5.7-8.2)
[2025-01-16 12:12] LABS: Albumin 3.7 g/dL (3.2-4.8); Bilirubin, Total 0.6 mg/dL (0.2-1.0)
[2025-01-16 12:16] LABS: Alkaline Phosphatase 126 U/L (46-116); Blood Urea Nitrogen 41 mg/dL (9-23); Glucose 316 mg/dL (74-106)
[~2025-01-20] VITALS: Ht 167.6 cm; Wt 85.3 kg
[~2025-01-20 07:57] MED LIST changes: -ASPI-543 PO; +INSU1INJ19 SC; +OXY5T GT; -PIOG45TA11 PO
[2025-01-20] MEDS ORDERED: CIPROFLOXACIN 400MG/200ML 200 ML IV ONE (08:46)
[2025-01-20] MEDS ORDERED: InsuLIN REG 1unit/0.01ml Soln (100units/ml) ONE (09:33)
[2025-01-20] MEDS ORDERED: InsuLIN REG 1unit/0.01ml Soln (100units/ml) SC ONE (09:45)
[2025-01-20] MEDS ORDERED: MIDAZOLAM HCL 2MG/2ML 2ml VIAL (1mg/ml) ONE (09:45)
[2025-01-20] MEDS ORDERED: PROPOFOL 10 MG/ML 20 ML IV ONE (09:45)
[2025-01-20] MEDS ORDERED: LIDOCAINE 2% (LOCAL ANESTH.) PF 5ml SDV ONE (09:45)
[2025-01-20] MEDS ORDERED: METOCLOPRAMIDE HCL 5MG/ml INJ 2ml VIAL ONE (09:45)
[2025-01-20] MEDS ORDERED: ONDANSETRON HCL 4 MG/2 ML VIAL ONE (09:45)
[2025-01-20] MEDS ORDERED: fentaNYL CITRATE 100 MCG/2 ML VL ONE (09:45)
[2025-01-20] MEDS ORDERED: SODIUM CHLORIDE LOCK 10 ML ONE (10:17)
[2025-01-20] MEDS ORDERED: HYDROmorphone HCL 2 MG/ML VL/or syr ONE (10:42)
[2025-01-20 11:02] VITALS: PULSE 63; RESP 12; TEMP 97.2
--- NOTE | 2025-01-20 11:05 | DVHNC2 ---
Procedure - OPERATIVE REPORT Pre-op. Diagnosis: BPH (N40.1) LUTs/LINARES Post-op. Diagnosis: Same as pre-op diagnosis Operation: Laser Enucleation of Prostate Gland (KTP/Greenlight) Cystoscopy with removal of Urolift implants (5) Anesthesia: General Indications: Patient has symptomatic BPH with LUTs and bladder outlet obstruction. The indications, risks, complications, alternatives and benefits of laser enucleation of prostate gland are discussed with patient. All questions were encouraged and answered. He is aware of specific risk/complications including but not limited to infection, bleeding, urinary incontinence, impotence, retrograde ejaculation, recurrent scar formation (strictures) and possible need for additional therapy(-ies). He is also aware of the alternative of this procedure including conservative management, medical therapy, minimally invasive procedures such as TUNA, TUMT, Urolift, and other forms of prostatectomy such as transurethral prostatectomy and open simple prostatectomy. Patient is competent and understands the discussion. He elected to proceed. Details of Procedure: After administration of anesthesia, he was positioned in the lithotomy position. His genitalia was prepped and draped in standard surgical and sterile fashion. The 24 F laser scope sheath is introduced into the bladder under direct vision using the 30 degree lens. Using the Moxy-fiber system and NS irrigation, prostate gland was enucleated and vaporized in systematic fashion using the energy settings from 120- 180 Joules. Prostatic enucleation of lateral/median lobes and vaporization of tissues from the bladder neck to veru montanum was performed taking care not to injure the external sphinctor. The ureteric orifices were noted and avoided of any thermal injury. The Urolift implants were removed with grasping forceps. [address] Arguelles catheter was placed for postoperative irrigation and drainage of bladder. Patient tolerated the procedure well. He was awaken and taken to RR in stable condition. All instrument counts were correct at the end of the procedure. Specimens: The prostatic tissue specimens are sent to pathology for evaluation. Complications: None Findings: EBL: minimal Total energy in Joules: 73K DAIN VELAZQUEZ MD Jan 20, 2025 11:05
[2025-01-20] MEDS ORDERED: hydrALAZINE HCL 20 MG/ML VL IV PRN (11:15)
[2025-01-20] MEDS ORDERED: ONDANSETRON HCL 4 MG/2 ML VIAL IV PRN (11:15)
[2025-01-20] MEDS ORDERED: METOCLOPRAMIDE HCL 5MG/ml INJ 2ml VIAL IV PRN (11:15)
[2025-01-20] MEDS ORDERED: HYDROmorphone HCL 2 MG/ML VL/or syr IV PRN (11:15)
[2025-01-20] MEDS ORDERED: ACETAMINOPHEN IV 1000 MG/100ML (10MG/ML) IV ONE (11:15)
[2025-01-20 11:32] VITALS: PULSE 67; RESP 12
[2025-01-20 12:02] VITALS: PULSE 73; RESP 12
[2025-01-20 12:15] VITALS: BP 145/62; PULSE 67; RESP 12; O2SAT 98
== END 2025-01-26 12:52 | disposition home or self-care (01) ==
LOC: SUR 07:57
PROVIDERS: ATTEND Urology
DX: N40.1 Benign prostatic hyperplasia with lower urinary tract symptoms (principal); N13.8 Other obstructive and reflux uropathy; I12.9 Hypertensive chronic kidney disease with stage 1 through stage 4 chronic kidney disease, or unspecified chronic kidney disease; E11.22 Type 2 diabetes mellitus with diabetic chronic kidney disease; N18.32 Chronic kidney disease, stage 3b; I48.91 Unspecified atrial fibrillation; E11.40 Type 2 diabetes mellitus with diabetic neuropathy, unspecified; E78.00 Pure hypercholesterolemia, unspecified; E66.3 Overweight; Z68.30 Body mass index [BMI] 30.0-30.9, adult; Z79.899 Other long term (current) drug therapy; Z96.651 Presence of right artificial knee joint; Z96.0 Presence of urogenital implants
CPT/HCPCS: 36415; 52649; 80053; 81001; 82962; 85025; 85610; 85730; 87086; J0744; J1171; J1815; J2003; J2250; J2405; J2704; J2765; J3010

== ENCOUNTER 2025-01-27 08:00 | Outpatient (CLI) | payer OTHER, MEDICAID ==
[2025-01-27 09:30] LABS: Triglycerides 75 mg/dL (< 150)
[2025-01-27 09:32] LABS: Cholesterol 126 mg/dL (< 200)
[2025-01-27 09:33] LABS: HDL Cholesterol 66 mg/dL (40-59)
== END 2025-01-27 17:00 | disposition home or self-care (01) ==
LOC: LAB 08:00
PROVIDERS: ATTEND Internal Medicine
DX: E11.22 Type 2 diabetes mellitus with diabetic chronic kidney disease (principal); N18.32 Chronic kidney disease, stage 3b
CPT/HCPCS: 36415; 80061; 83036